=== PATIENT | female | born 1970 | race Caucasian/White ===

== ENCOUNTER 2018-10-21 16:08 | Emergency (ER) | payer OTHER ==
[~2018-10-21] VITALS: Ht 157.5 cm; Wt 92.7 kg
[~2018-10-21 16:08] MED LIST: AZIT250T3 PO; ONDA4ODT1 SL
[2018-10-21 16:22] VITALS: BP 114/76
--- NOTE | 2018-10-21 16:27 | NUR ---
48Y/F BIB SELF C/O PERSISTENT VAGINAL DISCHARGE WITH ITCHINESS SINCE 09/27/2018; PRESCRIBE BY URGENT CARE WITH CIPRO, PENAZOPYRIDINE, NITRUFURANTON, FLUCONAZOLE, CREAME FOR UTI, VAGINAL YEAST INFECTION; SYMPTOMS HAD SUBSIDE BUT STILL PERSIST; DENIES VAGINAL PAIN OR PAINFUL URINATION. PT IS AAOX4, VSS, BED DOWN, BEDRAIL UP X 1, ER MD AWARE AND NOTIFIED OF PT STATUS. HX; ABOVE RX; ABOVE
--- NOTE | 2018-10-21 17:20 | NUR ---
Patient being evaluated by physician at bedside.
[2018-10-21 17:30] VITALS: BP 112/73
--- NOTE | 2018-10-21 17:30 | NUR ---
Patient discharged with v/s stable. Written and verbal after care instructions given and explained. Patient alert, oriented and verbalized understanding of instructions. Ambulatory with steady gait. All questions addressed prior to discharge. ID band removed. Patient advised to follow up with PMD. Rx of gyne-lotrimin cream, diflucan given. Patient educated on indication of medication including possible reaction and side effects. Opportunity to ask questions provided and answered.
== END 2018-10-21 17:30 | disposition home or self-care (01) ==
LOC: MED 16:08
DX: B37.9 Candidiasis, unspecified (principal); Z88.8 Allergy status to other drugs, medicaments and biological substances; Z79.899 Other long term (current) drug therapy
CPT/HCPCS: 87086; 99283

== ENCOUNTER 2019-01-21 10:36 | Emergency (ER) | payer OTHER ==
[~2019-01-21] VITALS: Ht 157.5 cm; Wt 90.7 kg
[~2019-01-21 10:36] MED LIST changes: +ONDA-24 SL; -ONDA4ODT1 SL
[2019-01-21 10:52] VITALS: BP 124/75
--- NOTE | 2019-01-21 10:52 | NUR ---
patient ambulated to bed bed#5
--- NOTE | 2019-01-21 10:52 | NUR ---
EDMD AT BEDSIDE PERFORMING MSE
--- NOTE | 2019-01-21 10:55 | NUR ---
urine cup handed to pt for sample
--- NOTE | 2019-01-21 11:20 | NUR ---
URINE COLELCTED AND SENT TO LAB
--- NOTE | 2019-01-21 11:24 | NUR ---
BIB self w c/o right sided lower back pressure/pain 06/22. Denies recent injury, NVD, dysuria, frequency, or fever.
[2019-01-21 12:14] LABS: APPEARANCE,URINE CLOUDY (CLEAR); BILIRUBIN,URINE NEGATIVE (NEGATIVE); BLOOD, URINE 2+ (NEGATIVE); COLOR,URINE YELLOW (YELLOW); LEUKOCYTE ESTERASE ,URINE 3+ (NEGATIVE); NITRITE, URINE NEGATIVE (NEGATIVE); UGLUCOSE NEGATIVE (NEGATIVE)
[2019-01-21 12:32] LABS: URINE AMORPHOUS URATE 1+ /HPF (None Seen)
[2019-01-21 12:48] VITALS: BP 129/76
--- NOTE | 2019-01-21 12:48 | NUR ---
Patient discharged with v/s stable. Written and verbal after care instructions given and explained. Patient alert, oriented and verbalized understanding of instructions. Ambulatory with steady gait. All questions addressed prior to discharge. ID band removed. Patient advised to follow up with PMD. Rx of KEFLEX AND NAPROSYN given. Patient educated on indication of medication including possible reaction and side effects. Opportunity to ask questions provided and answered.
== END 2019-01-21 12:48 | disposition home or self-care (01) ==
LOC: MED 10:36
DX: N39.0 Urinary tract infection, site not specified (principal); I10 Essential (primary) hypertension; Z90.49 Acquired absence of other specified parts of digestive tract; Z79.899 Other long term (current) drug therapy; Z88.2 Allergy status to sulfonamides
CPT/HCPCS: 81001; 81025; 87086; 99283

== ENCOUNTER 2021-04-18 05:32 | Emergency (ER) | payer OTHER ==
[~2021-04-18] VITALS: Ht 157.5 cm; Wt 95.3 kg
[2021-04-18 05:37] VITALS: BP 150/80
[2021-04-18] MEDS ORDERED: KETOROLAC 30 MG/ML VIAL IM ONE (05:55)
[2021-04-18 06:33] LABS: BILIRUBIN,URINE NEGATIVE (NEGATIVE); BLOOD, URINE 2+ (NEGATIVE); COLOR,URINE YELLOW (YELLOW); LEUKOCYTE ESTERASE ,URINE 1+ (NEGATIVE); NITRITE, URINE NEGATIVE (NEGATIVE); UGLUCOSE NEGATIVE (NEGATIVE)
[2021-04-18 06:52] LABS: APPEARANCE,URINE CLOUDY (CLEAR)
[2021-04-18 06:56] LABS: URINE AMORPHOUS URATE 1+ /HPF (None Seen); WBC,URINE 0-5 /HPF (0-5)
[2021-04-18] MEDS ORDERED: CEPH-588 PO (07:52)
[2021-04-18] MEDS ORDERED: NAPR-54 PO (07:52)
[2021-04-18] MEDS ORDERED: DIAZ5TAB7 PO (07:52)
[2021-04-18 08:12] VITALS: BP 176/93
== END 2021-04-18 08:12 | disposition home or self-care (01) ==
LOC: MED 05:32
DX: M54.41 Lumbago with sciatica, right side (principal); R82.71 Bacteriuria; I10 Essential (primary) hypertension; Z88.2 Allergy status to sulfonamides; Z79.899 Other long term (current) drug therapy; Z98.890 Other specified postprocedural states
CPT/HCPCS: 72100; 81001; 81025; 87086; 96372; 99284; J1885

== ENCOUNTER 2021-04-26 19:19 | Emergency (ER) | payer OTHER ==
[~2021-04-26] VITALS: Ht 157.5 cm; Wt 93.9 kg
[~2021-04-26 19:19] MED LIST changes: +CEPH-588 PO; +DIAZ5TAB7 PO; +NAPR-54 PO
[2021-04-26 19:38] VITALS: BP 123/76
--- NOTE | 2021-04-26 19:38 | NUR ---
TO BED AMBULATORY
--- NOTE | 2021-04-26 20:10 | NUR ---
PT PRESENTED TO ED C/O RT UPPER THIGH NUMBNESS X 2 DAYS. 0/10 PAIN. CMS INTACT. DENIES ANY TRUAMA, FALLS, INJURIES, OR LIFTING ANYTHING HEAVY. NO OBVIOUS DEFORMITY NOTED. VSS. A&OX4. STEADY GAIT. CAP REFILL < 3. PEDAL PULSES PRESENT BLE. NO DISCOLORATION ON EXTREMETIES. SKIN INTACT. ALLERGIES: SULFA. PMH: FIBROIDS.
--- NOTE | 2021-04-26 20:37 | NUR ---
AT BEDSIDE EVALUATING PT.
[2021-04-26] MEDS ORDERED: KETOROLAC 30 MG/ML VIAL IM ONE (20:40)
[2021-04-26] MEDS ORDERED: NAPR-54 PO (20:44)
[2021-04-26 21:11] VITALS: BP 123/76
== END 2021-04-26 21:11 | disposition home or self-care (01) ==
LOC: MED 19:19
DX: M54.41 Lumbago with sciatica, right side (principal); I10 Essential (primary) hypertension; Z79.899 Other long term (current) drug therapy; Z88.2 Allergy status to sulfonamides
CPT/HCPCS: 96372; 99283; J1885

== ENCOUNTER 2022-10-06 13:30 | Emergency (ER) | payer OTHER ==
[~2022-10-06] VITALS: Ht 157.5 cm; Wt 93.0 kg
[~2022-10-06 13:30] MED LIST changes: -DIAZ5TAB7 PO; +DIAZ5TAB8 PO; +ONDA-188 SL; -ONDA-24 SL
[2022-10-06 13:52] VITALS: BP 124/91
--- NOTE | 2022-10-06 13:52 | NUR ---
52 y/o female, c/o "losing voice", body aches, lethargic, headache 6/10, subjective fever, cough for 10 days. a&ox4, ambulates with steady gait. denies n/v/d. ermd made aware. pmh: fibroids allergy: sulfa med: denies
[2022-10-06] MEDS ORDERED: PROM118S5 PO (15:09)
[2022-10-06] MEDS ORDERED: LIDO100S PO (15:09)
[2022-10-06] MEDS ORDERED: IBUP-2213 PO (15:09)
[2022-10-06 15:14] VITALS: BP 124/91
--- NOTE | 2022-10-06 15:27 | NUR ---
Patient discharged with v/s stable. Written and verbal after care instructions given and explained. Patient verbalized understanding. Ambulatory with steady gait. All questions addressed prior to discharge. Advised to follow up with PMD. note given for work rx: ibuprofen, lidocaine hcl, promethazine (sent)
--- NOTE | 2022-10-06 15:36 | NUR ---
new note given from md at this time
== END 2022-10-06 15:27 | disposition home or self-care (01) ==
LOC: MED 13:30
DX: J06.9 Acute upper respiratory infection, unspecified (principal); I10 Essential (primary) hypertension; Z79.899 Other long term (current) drug therapy
CPT/HCPCS: 99283

== ENCOUNTER 2023-02-17 15:56 | Emergency (ER) | payer OTHER ==
[~2023-02-17] VITALS: Ht 157.5 cm; Wt 85.7 kg
[~2023-02-17 15:56] MED LIST changes: +IBUP-2213 PO; +LIDO100S PO; +PROM118S5 PO
[2023-02-17 16:06] VITALS: BP 131/84
[2023-02-17] MEDS ORDERED: LIDOCAINE MPF 1% 10 MG/ML VIAL INJ ONE ×2 (17:45→18:45)
[2023-02-17] MEDS ORDERED: BACI-416 TP (19:13)
[2023-02-17] MEDS ORDERED: CEPH-588 PO (19:13)
[2023-02-17] MEDS ORDERED: IBUP-2213 PO (19:13)
--- NOTE | 2023-02-17 19:15 | NUR ---
PT IN [facility]. WEDGE PROCEDURE COMPLETE ON LT GREAT TOE BY RONI MARIA. PT SHARRI WELL. PENDING D/C. VERBAL ACI GIVEN BY RONI MARIA. DRSG PLACED BY AVILA ANSARI,.
--- NOTE | 2023-02-17 19:20 | NUR ---
Patient discharged with v/s stable. Written and verbal after care instructions given and explained. Patient alert, oriented and verbalized understanding of instructions. Ambulatory with steady gait. All questions addressed prior to discharge. ID band removed. Patient advised to follow up with PMD. Rx of MOTRIN, KEFLEX, BACITRACIN given. Patient educated on indication of medication including possible reaction and side effects. Opportunity to ask questions provided and answered.
--- NOTE | 2023-02-17 19:33 | NUR ---
CONTINUED CARE ENDORSED TO ALONSO GUERRERO. PT REQUEST WORK NOTE.
--- NOTE | 2023-02-17 19:35 | NUR ---
WORK NOTE PROVIDED.
== END 2023-02-17 19:20 | disposition home or self-care (01) ==
LOC: MED 15:56
DX: L60.0 Ingrowing nail (principal); R03.0 Elevated blood-pressure reading, without diagnosis of hypertension; I10 Essential (primary) hypertension; Z79.899 Other long term (current) drug therapy; Z79.2 Long term (current) use of antibiotics; Z79.1 Long term (current) use of non-steroidal anti-inflammatories (NSAID); Z88.2 Allergy status to sulfonamides
CPT/HCPCS: 11730; 99284; J2001

== ENCOUNTER 2023-02-20 15:46 | Emergency (ER) | payer OTHER ==
[~2023-02-20] VITALS: Ht 157.5 cm; Wt 91.2 kg
[~2023-02-20 15:46] MED LIST changes: +BACI-416 TP
[2023-02-20 16:15] VITALS: BP 127/80
[2023-02-20] MEDS ORDERED: FLUC150T PO (18:04)
--- NOTE | 2023-02-20 18:05 | NUR ---
PT D/C BY DWAYNE TAMAYO. Patient discharged with v/s stable. Written and verbal after care instructions ABOUT INGROWN TOENAIL given and explained. Patient alert, oriented and verbalized understanding of instructions. Ambulatory with steady gait. All questions addressed prior to discharge. ID band removed. Patient advised to follow up with PMD. Rx of FLUCONAZOLE given. Patient educated on indication of medication including possible reaction and side effects. Opportunity to ask questions provided and answered.
== END 2023-02-20 18:05 | disposition home or self-care (01) ==
LOC: MED 15:46
DX: L60.0 Ingrowing nail (principal); I10 Essential (primary) hypertension; Z88.0 Allergy status to penicillin; Z79.899 Other long term (current) drug therapy
CPT/HCPCS: 99283

== ENCOUNTER 2023-04-23 08:16 | Emergency (ER) | payer OTHER ==
[~2023-04-23] VITALS: Ht 157.5 cm; Wt 93.0 kg
[~2023-04-23 08:16] MED LIST changes: +FLUC150T PO
[2023-04-23 08:28] VITALS: BP 132/97
--- NOTE | 2023-04-23 08:35 | NUR ---
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
[2023-04-23] MEDS ORDERED: NAPR-1003 PO (08:49)
[2023-04-23] MEDS ORDERED: DICL100G5 TP (08:52)
== END 2023-04-23 09:00 | disposition home or self-care (01) ==
LOC: MED 08:16
DX: M79.675 Pain in left toe(s) (principal); I10 Essential (primary) hypertension; Z88.2 Allergy status to sulfonamides; Z79.899 Other long term (current) drug therapy
CPT/HCPCS: 99283

== ENCOUNTER 2023-04-30 07:19 | Emergency (ER) | payer OTHER ==
[~2023-04-30] VITALS: Ht 157.5 cm; Wt 93.4 kg
[~2023-04-30 07:19] MED LIST changes: +DICL100G5 TP; +NAPR-1003 PO
[2023-04-30 07:22] VITALS: BP 145/93
--- NOTE | 2023-04-30 09:29 | NUR ---
Patient discharged with v/s stable. Written and verbal after care instructions given and explained. Patient verbalized understanding. Ambulatory with steady gait. All questions addressed prior to discharge. Advised to follow up with PMD.
== END 2023-04-30 09:15 | disposition home or self-care (01) ==
LOC: MED 07:19
DX: G57.92 Unspecified mononeuropathy of left lower limb (principal); I10 Essential (primary) hypertension; Z88.2 Allergy status to sulfonamides; Z79.899 Other long term (current) drug therapy
CPT/HCPCS: 99281

== ENCOUNTER 2023-08-10 10:45 | Emergency (ER) | payer OTHER ==
[~2023-08-10] VITALS: Ht 157.5 cm; Wt 93.0 kg
[~2023-08-10 10:45] MED LIST changes: -BACI-416 TP; +BACI-418 TP; +DICL100G32 TP; -DICL100G5 TP
[2023-08-10 11:00] VITALS: BP 147/83; PULSE 70; RESP 16; TEMP 97.8; O2SAT 97
== END 2023-08-10 12:15 | disposition home or self-care (01) ==
LOC: MED 10:45
DX: M79.671 Pain in right foot (principal); M79.672 Pain in left foot; R20.0 Anesthesia of skin; I10 Essential (primary) hypertension; Z79.899 Other long term (current) drug therapy; Z88.2 Allergy status to sulfonamides
CPT/HCPCS: 99281

== ENCOUNTER 2023-09-03 00:25 | Emergency (ER) | payer OTHER ==
[~2023-09-03] VITALS: Ht 157.5 cm; Wt 93.0 kg
[2023-09-03 00:25] VITALS: BP 141/82; PULSE 86; RESP 17; TEMP 97.8; O2SAT 97
[2023-09-03] MEDS ORDERED: BACITRACIN OINT 500 UNITS/GM PKT TP ONE (04:20)
[2023-09-03] MEDS ORDERED: LIDOCAINE MPF 2% 100 MG/5 ML VIAL INJ ONE (04:20)
[2023-09-03] MEDS ORDERED: LIDOCAINE 2% 100 MG/5 ML SYR IVP ONE (04:29)
[2023-09-03] MEDS ORDERED: LIDOCAINE 2% 1000 MG/50 ML VIAL INJ ONE (04:40)
[2023-09-03] MEDS ORDERED: NAPR-54 PO ×2 (05:13→07:22)
[2023-09-03] MEDS ORDERED: CEPH-588 PO ×2 (05:13→07:22)
[2023-09-03 05:44] VITALS: BP 141/82; PULSE 86; RESP 17; TEMP 97.8; O2SAT 97
== END 2023-09-03 05:44 | disposition home or self-care (01) ==
LOC: MED 00:25
DX: L60.0 Ingrowing nail (principal); I10 Essential (primary) hypertension; Z79.899 Other long term (current) drug therapy; Z79.1 Long term (current) use of non-steroidal anti-inflammatories (NSAID); Z79.2 Long term (current) use of antibiotics; Z88.2 Allergy status to sulfonamides
CPT/HCPCS: 11730; 99284; J2001

== ENCOUNTER 2023-09-07 09:15 | Emergency (ER) | payer OTHER ==
[~2023-09-07] VITALS: Ht 157.5 cm; Wt 93.0 kg
[2023-09-07 09:21] VITALS: BP 153/90; PULSE 83; RESP 16; TEMP 97.3; O2SAT 97
[2023-09-07] MEDS ORDERED: BACI-418 TP (09:44)
[2023-09-07] MEDS ORDERED: EMLAC TP (09:44)
[2023-09-07] MEDS ORDERED: BACITRACIN OINT 500 UNITS/GM PKT TP ONE (09:57)
[2023-09-07 10:34] VITALS: BP 153/90; PULSE 83; RESP 16; TEMP 97.3; O2SAT 97
== END 2023-09-07 10:36 | disposition home or self-care (01) ==
LOC: MED 09:15
DX: M79.675 Pain in left toe(s) (principal); I10 Essential (primary) hypertension; Z88.2 Allergy status to sulfonamides; Z79.899 Other long term (current) drug therapy
CPT/HCPCS: 99282

== ENCOUNTER 2023-10-27 11:00 | Emergency (ER) | payer OTHER ==
[~2023-10-27] VITALS: Ht 188 cm; Wt 91.6 kg
[~2023-10-27 11:00] MED LIST changes: +EMLAC TP
[2023-10-27 12:05] VITALS: BP 123/76; PULSE 82; RESP 16; TEMP 98.2; O2SAT 98
[2023-10-27] MEDS ORDERED: FAMO-90 PO (13:26)
[2023-10-27] MEDS ORDERED: ACET-9882 PO (13:26)
[2023-10-27] MEDS ORDERED: SIME80TA41 PO (13:26)
[2023-10-27 13:36] VITALS: BP 123/76; PULSE 82; RESP 16; TEMP 98.2; O2SAT 98
== END 2023-10-27 13:15 | disposition home or self-care (01) ==
LOC: MED 11:00
DX: K30 Functional dyspepsia (principal); I10 Essential (primary) hypertension; M54.50 Low back pain, unspecified; Z88.2 Allergy status to sulfonamides; Z79.899 Other long term (current) drug therapy
CPT/HCPCS: 99283

== ENCOUNTER 2024-03-22 05:39 | Emergency (ER) | payer OTHER ==
[~2024-03-22] VITALS: Ht 157.5 cm; Wt 90.7 kg
[~2024-03-22 05:39] MED LIST changes: +ACET-9882 PO; +FAMO-90 PO; +NAPR-337 PO; -NAPR-54 PO; +SIME80TA41 PO
[2024-03-22 05:51] VITALS: BP 126/82; PULSE 88; RESP 16; TEMP 97; O2SAT 98
[2024-03-22] MEDS ORDERED: MIRABULK PO (06:59)
[2024-03-22] MEDS ORDERED: HYDR-2734 TP (06:59)
[2024-03-22] MEDS ORDERED: SENN1TAB41 PO (06:59)
== END 2024-03-22 07:10 | disposition home or self-care (01) ==
LOC: MED 05:39
DX: K59.00 Constipation, unspecified (principal); L29.2 Pruritus vulvae; K64.4 Residual hemorrhoidal skin tags; N92.4 Excessive bleeding in the premenopausal period; I10 Essential (primary) hypertension; Z88.2 Allergy status to sulfonamides; Z79.899 Other long term (current) drug therapy
CPT/HCPCS: 99283

== ENCOUNTER 2024-05-09 07:44 | Emergency (ER) | payer OTHER ==
[~2024-05-09] VITALS: Ht 162.6 cm; Wt 81.6 kg
[~2024-05-09 07:44] MED LIST changes: +HYDR-2734 TP; +MIRABULK PO; +SENN1TAB41 PO
[2024-05-09 08:04] VITALS: BP 145/70; PULSE 68; RESP 18; TEMP 97.3; O2SAT 98
[2024-05-09 08:22] LABS: APPEARANCE,URINE CLEAR (CLEAR); BILIRUBIN,URINE NEGATIVE (NEGATIVE); BLOOD, URINE 1+ (NEGATIVE); COLOR,URINE YELLOW (YELLOW); LEUKOCYTE ESTERASE ,URINE TRACE (NEGATIVE); NITRITE, URINE NEGATIVE (NEGATIVE); PROTEIN,URINE NEGATIVE (NEGATIVE); UGLUCOSE NEGATIVE (NEGATIVE); UROBILINOGEN,URINE 0.2 EU/dL (0.2 - 1)
[2024-05-09 08:49] LABS: BACTERIA,URINE 0-2 /HPF (None Seen); SQUAMOUS EPITHELIAL CELL,UR 0-3 (FEW) /LPF (0-3 (FEW)); WBC,URINE 0-5 /HPF (0-5)
[2024-05-09] MEDS ORDERED: PYR100 PO (09:07)
[2024-05-09] MEDS ORDERED: CEPH-588 PO (09:07)
[2024-05-09 09:40] VITALS: BP 138/82; PULSE 67; RESP 16; TEMP 97.7; O2SAT 96
== END 2024-05-09 09:41 | disposition home or self-care (01) ==
LOC: MED 07:44
DX: N30.90 Cystitis, unspecified without hematuria (principal); I10 Essential (primary) hypertension; Z79.1 Long term (current) use of non-steroidal anti-inflammatories (NSAID); Z79.2 Long term (current) use of antibiotics; Z79.899 Other long term (current) drug therapy; Z88.2 Allergy status to sulfonamides
CPT/HCPCS: 81001; 99283

== ENCOUNTER 2024-05-11 08:08 | Emergency (ER) | payer OTHER ==
[~2024-05-11] VITALS: Ht 157.5 cm; Wt 90.8 kg
[~2024-05-11 08:08] MED LIST changes: +PYR100 PO
[2024-05-11 08:17] VITALS: BP 147/99; PULSE 77; RESP 18; TEMP 97.7; O2SAT 97
[2024-05-11] MEDS ORDERED: MIRABULK PO (08:31)
[2024-05-11] MEDS ORDERED: MAGN296S70 PO (08:31)
[2024-05-11 08:51] VITALS: BP 147/99; PULSE 77; RESP 18; TEMP 97.7; O2SAT 97
== END 2024-05-11 08:45 | disposition home or self-care (01) ==
LOC: MED 08:08
DX: K59.00 Constipation, unspecified (principal); I10 Essential (primary) hypertension; Z79.1 Long term (current) use of non-steroidal anti-inflammatories (NSAID); Z79.2 Long term (current) use of antibiotics; Z79.899 Other long term (current) drug therapy; Z88.2 Allergy status to sulfonamides
CPT/HCPCS: 99282